=== PATIENT | male | born 1945 | race Caucasian/White ===

== ENCOUNTER → 2016-10-10 | Outpatient (CLI) | payer OTHER, MEDICARE | LOC: BMCIMAGING 08:16 | PROVIDERS: ATTEND Emergency Medicine | DX: R05 Cough (principal); I51.7 Cardiomegaly ==

== ENCOUNTER → 2017-04-23 | Outpatient (CLI) | payer OTHER, MEDICARE | LOC: FCPNEURO 21:00 | PROVIDERS: ATTEND Psychiatry & Neurology Sleep Medicine | DX: G47.31 Primary central sleep apnea (principal); G47.61 Periodic limb movement disorder ==

== ENCOUNTER → 2017-05-22 | Outpatient (CLI) | payer OTHER, MEDICARE | LOC: FCPNEURO 21:30 | PROVIDERS: ATTEND Psychiatry & Neurology Sleep Medicine | DX: G47.31 Primary central sleep apnea (principal) ==

== ENCOUNTER → 2018-03-16 | Outpatient (CLI) | payer OTHER | LOC: FIMAGING 08:06 | PROVIDERS: ATTEND Physician Assistant | DX: Z13.6 Encounter for screening for cardiovascular disorders (principal); Z82.3 Family history of stroke; R94.31 Abnormal electrocardiogram [ECG] [EKG] ==

== ENCOUNTER → 2018-03-18 | Outpatient (CLI) | payer OTHER, MEDICARE | LOC: BHFA 11:30 | PROVIDERS: ATTEND Internal Medicine Interventional Cardiology | DX: R00.1 Bradycardia, unspecified (principal); R94.31 Abnormal electrocardiogram [ECG] [EKG] ==

== ENCOUNTER → 2018-04-24 | Outpatient (CLI) | payer OTHER, MEDICARE | LOC: BHFA 13:00 | PROVIDERS: ATTEND Internal Medicine Interventional Cardiology | DX: R94.30 Abnormal result of cardiovascular function study, unspecified (principal); I25.10 Atherosclerotic heart disease of native coronary artery without angina pectoris | CPT/HCPCS: 78452; 93017; A9500; J2785 ==

== ENCOUNTER → 2018-06-04 | Outpatient (CLI) | payer OTHER, MEDICARE | LOC: BMCIMAGING 15:22 | PROVIDERS: ATTEND Internal Medicine Rheumatology | DX: M25.512 Pain in left shoulder (principal); M79.641 Pain in right hand; R93.7 Abnormal findings on diagnostic imaging of other parts of musculoskeletal system ==

== ENCOUNTER → 2018-06-20 | Outpatient (CLI) | payer OTHER, MEDICARE | LOC: BMCIMAGING 12:19 | PROVIDERS: ATTEND Family Medicine | DX: R91.8 Other nonspecific abnormal finding of lung field (principal); R05 Cough ==

== ENCOUNTER → 2018-08-05 | Outpatient (CLI) | payer OTHER, MEDICARE | LOC: BMCIMAGING 08:15 ==